=== PATIENT | female | born 1980 | race African-American/Black ===

== ENCOUNTER 2016-08-24 20:30 | Emergency (ER) | payer OTHER ==
--- NOTE | ~2016-08-24 | CT2 ---
[facility] A Service of [facility] [place] RADIOLOGY TEXT RESULTS PATIENT: JUAN CLARK LOCATION: [facility] : 82 UNIT #: [id number] AGE: [address]: Richard Ribera MD SEX: F ORDER DR: [id number] [facility] [address] [place], [place] [address] [id number] MR#: [id number] Acc #: [id number] NAME: JUAN CLARK : 1980 SEX: F STUDY DATE/TIME: 08/24/2016 21:36 UNIT: [facility] ROOM: STUDY DESCRIPTION: CT Abd and Pelv W Cont Attending Physician: Richard Ribera M.D. Ordering Physician: Richard Ribera M.D. Primary Care Physician: No Primary Care Physician MEDICAL IMAGING REPORT This report is preliminary unless electronic signature is present EXAM CT abdomen and pelvis with contrast INDICATION Left lower quadrant pain, back pain, no bowel movement for [address] exam was performed with one or more of the following radiation dose reduction techniques: automatic exposure control, adjustment of mA and/or kV according to patient size, and iterative reconstruction. The patient was given 100 cc of Isovue 370, and axial 5 mm images were obtained through the abdomen and pelvis. There is no comparison. FINDINGS The lung bases re clear. The liver, spleen, pancreas, and adrenal glands are normal. The left kidney is normal. The right kidney shows hydronephrosis, and the right ureter is dilated. The obstruction is caused by a large abnormal process in the posterior pelvis. This measures about 8.5 cm in width and 9.3 cm in AP dimension, and 10.7 cm from top to bottom. It is predominantly low in density with slight enhancement of thin hrenandez and septa. It is inseparable from the adjacent psoas muscle and iliacus muscle. It is posterior to the uterus. I can clearly see the left ovary. The left ovary has a small cyst. It is not clear if the right ovary is involved in the abnormality or it is next to the uterus. The bladder is normal. The bowel abuts this area but appears normal. IMPRESSION There is a large complex mostly low density abnormality in the deep pelvis in the central and right side of the pelvis and posterior to the uterus. It is about 10-12 cm in maximum dimension. It is inseparable from the adjacent musculature on the right side, and surrounds the external iliac STS. [facility] A Service of [facility] RADIOLOGY TEXT RESULTS PATIENT: JUAN CLARK LOCATION: [facility] : 82 UNIT #: [id number] AGE: [address]: Richard Ribera MD SEX: F ORDER DR: artery and internal iliac artery. Given the patient's age and the proximity to the uterus and her symptoms including a white count at this time, this is most likely an infectious process, possibly a tuboovarian abscess, and pelvic inflammatory disease. This process is obstructing the right ureter, and there is marked right hydronephrosis. I discussed the findings with Dr. Ribera. Malignancy seems less likely given the disorganized appearance of this abnormality, but an ovarian mass cannot be completely excluded. STAT * RESULT Dictated by... Cristiano Alcazar M.D. THIS IS AN ELECTRONICALLY VERIFIED REPORT Cristiano Alcazar M.D. at 08/25/2016 12:28 AM BETY/andrea TD: 08/24/2016 22:29 JOB #: [id number] MEDICAL IMAGING REPORT Page 1 of 1 COPY
[2016-08-24 20:35] LABS: BASOPHIL% 0.2 % (0-2.5); EOSINOPHIL% 0.2 % (0.0-7.0); HEMATOCRIT 34.4 % (35.0-45.0); HEMOGLOBIN 11.4 gm/dL (12.0-16.0); LYMPHOCYTE# 3.4 X10e3 (1.0-3.5); LYMPHOCYTE% 16.1 % (17.0-45.0); MEAN CELL VOLUME 87.8 FL (83-96); MONOCYTE# 1.6 X10e3 (0-1.0); MONOCYTE% 7.4 % (3.0-12.0); NEUTROPHIL# 16.2 X10e3 (1.5-7.1); NEUTROPHIL% 76.1 % (40-75); PLATELET COUNT 858 X10e3 (140-420); RED BLOOD COUNT 3.92 X10e (3.90-5.30); RED CELL DISTRIBUTION WIDTH 13.4 % (11.0-15.5); WHITE BLOOD COUNT 21.3 X10e3 (4.0-10.5)
[2016-08-24 20:37] LABS: DIFF IND YES
[2016-08-24 20:49] LABS: URINE SOURCE CLEAN CATCH
[2016-08-24 20:51] LABS: ALKALINE PHOSPHATASE 111 U/L (32-92); ALT (SGPT) 15 U/L (10-40); AST (SGOT) 18 U/L (10-42); BILIRUBIN, DIRECT 0.2 mg/dL (0.0-0.2); BILIRUBIN,INDIRECT 0.2 mg/dL (0.0-0.9); BILIRUBIN,TOTAL 0.4 mg/dL (0.2-2.0); BLOOD UREA NITROGEN <5 mg/dL (9-23); BUN/CREATININE RATIO 4.54; CALCIUM SERUM 9.3 mg/dL (8.4-10.2); CARBON DIOXIDE 27 mmol/L (22-31); CHLORIDE 89 mmol/L (100-111); CREATININE SERUM 1.1 mg/dL (0.6-1.4); GLOM FILT RATE Estimated 75.4 mL/min (>60); GLUCOSE FASTING 235 mg/dL (70-110); LIPASE 17 U/L (22-51); POTASSIUM 3.4 mmol/L (3.5-5.1); PROTEIN TOTAL SERUM 9.1 g/dL (6.0-8.3); SODIUM 129 mmol/L (135-145)
[2016-08-24 20:57] LABS: URINE APPEARANCE CLOUDY; URINE BILIRUBIN NEG (NEG); URINE BLOOD NEG (NEG); URINE COLOR YELLOW; URINE GLUCOSE NEG (NEG); URINE KETONE NEG (NEG); URINE LEUKOCYTE ESTERASE NEG (NEG); URINE NITRATE NEG (NEG); URINE PROTEIN 1+ (NEG); URINE SPECIFIC GRAVITY 1.008 (1.003-1.035)
[2016-08-24 20:59] LABS: CULTURE INDICATED? YES; URINE BACTERIA AUWI 1+ (NEGATIVE); URINE SQUAMOUS EPITHELIAL CELL MOD /[HPF]
[2016-08-24 21:05] LABS: PLATELET ESTIMATE INCREASED (NORMAL); POIKILOCYTOSIS SL
[2016-08-24 21:49] LABS: AMPHETAMINE NEG (NEG); BARBITURATES NEG (NEG); BENZODIAZEPINES NEG (NEG); COCAINE NEG (NEG); MARIJUANA POS (NEG); OPIATES NEG (NEG); TRICYCLIC ANTIDEPRESSANTS NEG (NEG); U METHADONE NEG (NEG)
[2016-08-27 17:48] LABS: CHLAMYDIA TRACH Not Detected (Not Detected); N GONOR Not Detected (Not Detected)
== END 2016-08-24 23:57 | disposition hospice, home (50) ==
LOC: CED 20:30
PROVIDERS: Emergency Medicine
DX: R10.9 Unspecified abdominal pain (principal); I10 Essential (primary) hypertension; E11.9 Type 2 diabetes mellitus without complications; F17.200 Nicotine dependence, unspecified, uncomplicated; Z88.5 Allergy status to narcotic agent; Z90.49 Acquired absence of other specified parts of digestive tract
CPT/HCPCS: 36415; 74177; 80048; 80076; 80307; 81003; 83690; 84703; 85025; 87086; 87491; 87591; 87808; 87905; 96361; 96365; 96375; 99284; 99285; J1885; Q9967